=== PATIENT | female | born 1985 | race Caucasian/White ===

== ENCOUNTER 2016-10-05 11:38 | Emergency (ER) | payer OTHER ==
[~2016-10-05] VITALS: Ht 160 cm; Wt 63.5 kg
[~2016-10-05 11:38] MED LIST: BENTYL20 MG PO; ZOFRAN ODT4 MG PO
[2016-10-05 12:46] LABS: ADD MIUA? YES; BILIRUBIN NEGATIVE; BLOOD NEGATIVE; COLOR YELLOW ((YELLOW)); GLUCOSE (STRIP) NEGATIVE; KETONES 5; LEUKOCYTES NEGATIVE; NITRITE NEGATIVE; PROTEIN (STRIP) NEGATIVE; SPECIFIC GRAVITY 1.024 (1.000-1.030)
[2016-10-05 12:52] LABS: HEMATOCRIT 40.6 % (36.0-46.0); MCH 30.2 PG (29.0-34.0); MCHC 34.2 G/DL (30.0-36.0); MCV 88.1 FL (83-99); MEAN PLAT.VOLUME 10.3 uM^3 (9.5-12.4); PLATELET COUNT 243 K/uL (156-360); RBC DIS.WIDTH-CV 12.1 % (11.8-14.6); RED BLOOD COUNT 4.61 M/uL (3.80-5.20); WHITE BLOOD COUNT 9.4 K/uL (4.1-10.2)
[2016-10-05 12:54] LABS: BACTERIA RARE /HPF; CALCIUM OXALATE CRYSTALS 4+ /HPF; EPITHELIAL CELLS 1+ /HPF; HYALINE CASTS 0-5 /LPF; MUCUS 1+ /LPF; RED BLOOD CELLS 0-5 /HPF (0-5); UCUL ADDED? NO; WHITE BLOOD CELLS 0-5 /HPF (0-5)
[2016-10-05 12:56] LABS: CHLORIDE 105 mEq/L (99-109); POTASSIUM 4.3 mEq/L (3.7-5.4); SODIUM 139 mEq/L (136-147)
[2016-10-05 12:58] LABS: GLUCOSE 134 mg/dL (70-99)
[2016-10-05 12:59] LABS: ANION GAP 8 MEQ/L (2-14)
[2016-10-05 13:00] LABS: TOTAL BILIRUBIN 0.2 mg/dL (0.0-1.0)
[2016-10-05 13:01] LABS: ALKALINE PHOSPHATASE 86 IU/L (3-129)
[2016-10-05 13:02] LABS: GFR ESTIMATE (CALCULATED) > 59 mL/min/
[2016-10-05 13:03] LABS: UREA NITROGEN (BUN) 12 mg/dL (9-23)
[2016-10-05 13:12] LABS: QUANTITATIVE HCG < 4.0 MIU/ML
[2016-10-05] MEDS ORDERED: ALPRAZOLAM1 MG PO (13:31)
[2016-10-05] MEDS ORDERED: SERTRALINE HCL100 MG PO (13:31)
[2016-10-05] MEDS ORDERED: VYVANSE40 MG PO (13:31)
[2016-10-05] MEDS ORDERED: VYVANSE30 MG PO (13:31)
[2016-10-05] MEDS ORDERED: ARIPIPRAZOLE20 MG PO (13:32)
[2016-10-05] MEDS ORDERED: BENTYL20 MG PO (13:41)
[2016-10-05] MEDS ORDERED: NORCO 5/3251 TABLET PO (13:41)
[2016-10-05] MEDS ORDERED: ZOFRAN ODT4 MG PO (13:41)
[2016-10-05 13:52] LABS: LIPASE 30 U/L (1.0-51.0)
[2016-10-05 14:17] VITALS: BP 149/90
== END 2016-10-05 14:18 | disposition home or self-care (01) ==
LOC: EME 11:38
DX: K80.50 Calculus of bile duct without cholangitis or cholecystitis without obstruction (principal); R10.13 Epigastric pain; R11.0 Nausea; F17.200 Nicotine dependence, unspecified, uncomplicated
CPT/HCPCS: 71020; 80053; 81003; 83690; 84702; 85027; 93005; 99281; 99283

== ENCOUNTER 2016-10-23 05:49 | Inpatient (IN) | payer OTHER ==
[~2016-10-23] VITALS: Ht 160 cm; Wt 62.5 kg
[~2016-10-23 05:49] MED LIST changes: +ALPRAZOLAM1 MG PO; +ARIPIPRAZOLE20 MG PO; +NORCO 5/3251 TABLET PO; +SERTRALINE HCL100 MG PO; +VYVANSE30 MG PO; +VYVANSE40 MG PO
[2016-10-23 06:38] LABS: HEMATOCRIT 41.5 % (36.0-46.0); MCH 29.8 PG (29.0-34.0); MCHC 34.2 G/DL (30.0-36.0); MCV 87.2 FL (83-99); MEAN PLAT.VOLUME 10.2 uM^3 (9.5-12.4); PLATELET COUNT 270 K/uL (156-360); RBC DIS.WIDTH-CV 12.2 % (11.8-14.6); RBC DIS.WIDTH-SD 39.5 % (39-53); RED BLOOD COUNT 4.76 M/uL (3.80-5.20); WHITE BLOOD COUNT 9.7 K/uL (4.1-10.2)
[2016-10-23 06:46] LABS: CHLORIDE 104 mEq/L (99-109); POTASSIUM 3.7 mEq/L (3.7-5.4); SODIUM 140 mEq/L (136-147)
[2016-10-23 06:48] LABS: GLUCOSE 96 mg/dL (70-99)
[2016-10-23 06:50] LABS: ANION GAP 10 MEQ/L (2-14); TOTAL BILIRUBIN 0.3 mg/dL (0.0-1.0)
[2016-10-23 06:52] LABS: ALKALINE PHOSPHATASE 90 IU/L (3-129); GFR ESTIMATE (CALCULATED) > 59 mL/min/
[2016-10-23 06:53] LABS: UREA NITROGEN (BUN) 14 mg/dL (9-23)
[2016-10-23 07:04] LABS: QUANTITATIVE HCG < 4.0 MIU/ML
[2016-10-23 07:31] LABS: LIPASE 35 U/L (1.0-51.0)
[2016-10-23 09:02] LABS: ADD MIUA? YES; BILIRUBIN NEGATIVE; BLOOD NEGATIVE; COLOR YELLOW ((YELLOW)); GLUCOSE (STRIP) NEGATIVE; KETONES 20; LEUKOCYTES NEGATIVE; NITRITE NEGATIVE; PROTEIN (STRIP) 30; SPECIFIC GRAVITY 1.025 (1.000-1.030); UROBILINOGEN 0.2 MG/DL (0.2-1.0)
[2016-10-23 09:30] LABS: BACTERIA RARE /HPF; EPITHELIAL CELLS 1+ /HPF; MUCUS 1+ /LPF; RED BLOOD CELLS 0-5 /HPF (0-5); UCUL ADDED? NO; WHITE BLOOD CELLS 0-5 /HPF (0-5)
[2016-10-23] MEDS ORDERED: ONDANSETRON ODT4 MG PO (13:53)
[2016-10-23] MEDS ORDERED: TRAZODONE HCL50 MG PO (13:54)
[2016-10-23] MEDS ORDERED: BENTYL20 MG PO (13:54)
[2016-10-23 17:39] VITALS: BP 122/82
[2016-10-23] MEDS ORDERED: HYDROCODON-ACE1 EAC7 PO (20:38)
[2016-10-23 22:17] VITALS: BP 131/80
[2016-10-24 03:21] VITALS: BP 110/73
[2016-10-24 07:40] LABS: HEMATOCRIT 38.2 % (36.0-46.0); MCH 30.4 PG (29.0-34.0); MCHC 34.6 G/DL (30.0-36.0); MEAN PLAT.VOLUME 10.5 uM^3 (9.5-12.4); PLATELET COUNT 226 K/uL (156-360); RBC DIS.WIDTH-SD 38.9 % (39-53); RED BLOOD COUNT 4.34 M/uL (3.80-5.20); WHITE BLOOD COUNT 11.1 K/uL (4.1-10.2)
[2016-10-24 08:01] VITALS: BP 127/83
[2016-10-24 08:02] LABS: ALKALINE PHOSPHATASE 66 IU/L (3-129); ANION GAP 6 MEQ/L (2-14); CHLORIDE 106 MEQ/L (99-109); GFR ESTIMATE (CALCULATED) > 59 mL/min/; GLUCOSE 130 mg/dL (70-99); SAMPLE HEMOLYSIS CHECK 0; SAMPLE ICTERIC CHECK 0; SAMPLE LIPEMIA CHECK 0; SODIUM 138 MEQ/L (136-147); TOTAL BILIRUBIN 0.5 MG/DL (0.0-1.0); UREA NITROGEN (BUN) 13 mg/dL (9-23)
[2016-10-24 08:04] LABS: POTASSIUM 4.7 MEQ/L (3.7-5.4)
== END 2016-10-24 11:39 | disposition home or self-care (01) | DRG 419 ==
LOC: EME 05:49 → EDOF 15:00 → 2EASTP 17:02
PROVIDERS: Surgery
PROC: 0FT44ZZ Resection of Gallbladder, Percutaneous Endoscopic Approach (ICD-10-PCS; principal; 2016-10-23)
DX: K80.10 Calculus of gallbladder with chronic cholecystitis without obstruction (principal); F17.210 Nicotine dependence, cigarettes, uncomplicated; F32.9 Major depressive disorder, single episode, unspecified; F98.8 Other specified behavioral and emotional disorders with onset usually occurring in childhood and adolescence; F41.9 Anxiety disorder, unspecified; Z56.0 Unemployment, unspecified; K58.9 Irritable bowel syndrome, unspecified
CPT/HCPCS: 76705; 80053; 81003; 83690; 84702; 85027; 88304; 99281; 99285; J1100; J1170; J1885; J2250; J2270; J2405; J2710; J3010; J7120

== ENCOUNTER 2017-07-08 09:52 | Emergency (ER) | payer OTHER ==
[~2017-07-08] VITALS: Ht 160 cm; Wt 67.2 kg
[~2017-07-08 09:52] MED LIST changes: +HYDROCODON-ACE1 EAC7 PO; +ONDANSETRON ODT4 MG PO; +TRAZODONE HCL50 MG PO
[2017-07-08] MEDS ORDERED: VYVANSE40 MG PO (14:01)
[2017-07-08] MEDS ORDERED: ABILIFY20 MG PO (14:03)
[2017-07-08] MEDS ORDERED: XANAX1 MG PO (14:03)
[2017-07-08] MEDS ORDERED: LEXAPRO20 MG PO (14:03)
[2017-07-08] MEDS ORDERED: VYVANSE30 M1 PO (14:03)
[2017-07-08 14:37] VITALS: BP 116/78
== END 2017-07-08 14:38 | disposition home or self-care (01) ==
LOC: EME 09:52
DX: Z76.0 Encounter for issue of repeat prescription (principal); F17.200 Nicotine dependence, unspecified, uncomplicated; F42.9 Obsessive-compulsive disorder, unspecified; F32.9 Major depressive disorder, single episode, unspecified; F41.9 Anxiety disorder, unspecified; F39 Unspecified mood [affective] disorder; F98.8 Other specified behavioral and emotional disorders with onset usually occurring in childhood and adolescence
CPT/HCPCS: 99281; 99283

== ENCOUNTER 2017-11-11 19:18 | Emergency (ER) | payer OTHER ==
[~2017-11-11] VITALS: Ht 160 cm; Wt 78.5 kg
[~2017-11-11 19:18] MED LIST changes: +ABILIFY20 MG PO; +LEXAPRO20 MG PO; +VYVANSE30 M1 PO; +XANAX1 MG PO
[2017-11-11 19:31] VITALS: BP 131/91
== END 2017-11-11 21:22 | disposition left against medical advice (07) ==
LOC: EME 19:18
DX: R42 Dizziness and giddiness (principal); Z53.21 Procedure and treatment not carried out due to patient leaving prior to being seen by health care provider

== ENCOUNTER 2017-11-12 17:26 | Emergency (ER) | payer OTHER ==
[~2017-11-12] VITALS: Ht 160 cm; Wt 78.7 kg
[2017-11-12 18:26] VITALS: BP 125/86
== END 2017-11-12 18:26 | disposition home or self-care (01) ==
LOC: EME 17:26
DX: F90.9 Attention-deficit hyperactivity disorder, unspecified type (principal); Z76.0 Encounter for issue of repeat prescription; F32.9 Major depressive disorder, single episode, unspecified; F41.9 Anxiety disorder, unspecified; F31.9 Bipolar disorder, unspecified; F17.200 Nicotine dependence, unspecified, uncomplicated; Z90.49 Acquired absence of other specified parts of digestive tract
CPT/HCPCS: 99281; 99283